=== PATIENT | female | born 1985 | race Caucasian/White ===

== ENCOUNTER 2017-03-21 14:26 | Outpatient (CLI) | payer BC ==
--- NOTE | 2017-03-21 15:41 | DIAGNOSTIC IMAGING REPORT ---
PROCEDURE: US ABDOMEN ULTRASOUND-COMPLETE INDICATION: RT ABD PAIN TECHNIQUE: Carrero scale and color Doppler sonographic images of the abdomen were obtained without comparison. COMPARISON: None. FINDINGS: The liver is enlarged measuring at least 22.8 cm in size. It demonstrates homogeneous hyperechoic parenchymal echotexture and is difficult to penetrate with ultrasound. No definite mass or intrahepatic biliary dilatation. Slight relative hypo echogenicity in the gallbladder fossa consistent with focal fatty sparing. The gallbladder is normal without stones or sludge. The wall is normal thickness measuring 1.7 mm. No pericholecystic fluid or Mclain sign. The extrahepatic common duct is normal measuring 2.5 ml. The visualized pancreas is normal without ductal dilatation or peripancreatic fluid collection. The abdominal aorta is normal in its course and caliber. The retrohepatic inferior vena cava is patent. There is appropriate hepatopetal flow in the portal vein. The right kidney measures 11.6 cm in length. The left kidney measures 12.6 cm in length. Both kidneys demonstrate normal morphology and cortical thickness without hydronephrosis, cyst, solid mass, or shadowing calculus. Color Doppler imaging demonstrates normal blood flow in each kidney. The spleen is normal in size measuring 11.1 cm in length. There is no perihepatic or perisplenic ascites. IMPRESSION: 1. Hepatomegaly and hepatic steatosis. 2. No sonographic evidence of cholelithiasis or cholecystitis.
--- NOTE | 2017-03-21 17:04 | DIAGNOSTIC IMAGING REPORT ---
PROCEDURE: US COMPLETE PELVIC W/TRANSVAG INDICATION: PELVIC PAIN TECHNIQUE: Transabdominal and endovaginal eng[place] scale and color Doppler sonographic images of the female pelvis were obtained. COMPARISON: None. FINDINGS: TRANSABDOMINAL SCANS: Uterus is surgically absent. The visible portions of the urinary bladder are normal. No free pelvic fluid or suspicious pelvic mass. TRANSVAGINAL SCANS: The vaginal cuff has a normal appearance without mass or fluid collection. No free pelvic fluid or suspicious adnexal mass. Ovaries are not visible. IMPRESSION: 1. Status post hysterectomy. 2. Nonvisualization of either ovary but no suspicious adnexal mass.
== END 2017-03-21 23:00 ==
LOC: US SRH 14:26
DX: R16.0 Hepatomegaly, not elsewhere classified (principal); K76.0 Fatty (change of) liver, not elsewhere classified; Z90.710 Acquired absence of both cervix and uterus